=== PATIENT | female | born 1995 | race American Indian/Alaskan Native ===

== ENCOUNTER 2018-09-11 12:56 | Emergency (ER) | payer SELFPAY ==
[2018-09-11 13:05] VITALS: BP 137/87
--- NOTE | 2018-09-11 13:05 | Emergency Department Report ---
Blank Doc - Documentation Documentation: This is a 23-year-old female that presents with polyuria and nausea with vomit ing. This initial assessment/diagnostic orders/clinical plan/treatment(s) is/are subject to change based on patient's health status, clinical progression and re- assessment by fellow clinical providers in the ED. Further treatment and workup at subsequent clinical providers discretion. Patient/guardians urged not to elope from the ED as their condition may be serious if not clinically assessed and managed. Initial orders include: 1- Patient sent to [facility] for further evaluation and treatment 2- UA 3- labs 4- finger stick
[2018-09-11 13:56] LABS: Basophils % (Auto) 0.2 % (0.0-1.8); Eosinophils % (Auto) 0.8 % (0.0-4.3); Hematocrit 34.5 % (30.3-42.9); Hemoglobin 10.8 gm/dl (10.1-14.3); Lymphocytes # (Auto) 0.8 K/mm3 (1.2-5.4); Lymphocytes % (Auto) 14.4 % (13.4-35.0); Mean Corpuscular HGB Conc 31 % (30-34); Monocytes # (Auto) 0.3 K/mm3 (0.0-0.8); Monocytes % (Auto) 5.8 % (0.0-7.3); Platelet Count 361 K/mm3 (140-440); Red Blood Count 5.16 M/mm3 (3.65-5.03); Red Cell Distribution Width 18.4 % (13.2-15.2)
[2018-09-11 13:58] LABS: Mean Corpuscular Volume 67 fl (79-97)
[2018-09-11 14:11] LABS: Bacteria,Urine 3+ /HPF (Negative); Bilirubin,Urine NEG (Negative); Blood,Urine LG (Negative); Color,Urine Yellow (Yellow); Mucus,Urine 2+ /HPF; Protein,Urine <15 mg/dL mg/dL (Negative); Urobilinogen,Urine < 2.0 mg/dL (<2.0)
[2018-09-11 14:13] LABS: BUN/Creatinine Ratio 20; Blood Urea Nitrogen 12 mg/dL (7-17); Calcium 8.8 mg/dL (8.4-10.2); Hemolysis Index 1
[2018-09-11] MEDS ORDERED: ZOFRAN ODT PO ONE (14:26)
--- NOTE | 2018-09-11 14:29 | Emergency Department Report ---
HPI - General Chief Complaint: Nausea/Vomiting/Diarrhea Time Seen by Provider: 09/11/18 13:04 - HPI HPI: 23-year-old female presents to the emergency Department with a 24-hour history of nausea, vomiting, increased urination, diarrhea and some abdominal discomfort. She took some Aleve for her symptoms without much relief. She denies any past medical history. The patient recently took a trip to [place] and [place] but no international travel. No sick contacts at home. She does not have a primary care physician. ED Past Medical Hx - Past Medical History Previous Medical History?: No - Surgical History Past Surgical History?: No - Social History Smoking Status: Never Smoker Substance Use Type: None - Medications Home Medications: Home Medications Medication Instructions Recorded Confirmed Last Taken Type Nitrofurantoin [place]/M-Cryst 100 mg PO Q12HR #14 capsule 09/11/18 Unknown Rx [Macrobid CAP] Ondansetron [Zofran Odt] 4 mg PO Q8HR PRN #12 tab.rapdis 09/11/18 Unknown Rx ED Review of Systems ROS: Stated complaint: VOMIT/FREQUENT URINE Other details as noted in HPI Comment: All other systems reviewed and negative Constitutional: denies: chills, fever Eyes: denies: eye pain, vision change ENT: denies: ear pain, throat pain Respiratory: denies: cough, shortness of breath Cardiovascular: denies: chest pain, palpitations Gastrointestinal: abdominal pain, nausea, vomiting, diarrhea Genitourinary: frequency. denies: discharge Musculoskeletal: denies: joint swelling, arthralgia Skin: denies: rash, lesions Neurological: denies: headache, weakness Physical Exam - Physical Exam Vital Signs: Vital Signs 09/11/18 13:04 Temperature 98 F Pulse Rate 96 H Respiratory 18 Rate Blood Pressure 137/87 O2 Sat by Pulse 99 Oximetry Physical Exam: GENERAL: The patient is well-developed well-nourished. HENT: Normocephalic. Atraumatic. Patient has moist mucous membranes. EYES: Extraocular motions are intact. NECK: Supple. Trachea is midline. CHEST/LUNGS: Clear to auscultation. There is no respiratory distress noted. HEART/CARDIOVASCULAR: Regular. There is no tachycardia. There is no murmur. ABDOMEN: Abdomen is soft, nontender. Patient has normal bowel sounds. Morbidly obese habitus. SKIN: Skin is warm and dry. NEURO: The patient is awake, alert, and oriented. The patient is cooperative. The patient has no focal neurologic deficits. The patient has normal speech. MUSCULOSKELETAL: There is no tenderness or deformity. There is no evidence of acute injury. ED Course Vital Signs 09/11/18 13:04 Temperature 98 F Pulse Rate 96 H Respiratory 18 Rate Blood Pressure 137/87 O2 Sat by Pulse 99 Oximetry ED Medical Decision Making - Lab Data Result diagrams: 09/11/18 13:17 09/11/18 13:17 - Radiology Data Radiology results: image reviewed interpreted by me: Abdominal x-ray shows nonspecific nonobstructive bowel gas. - Medical Decision Making The patient presents with a 24-hour history of nausea and vomiting, diarrhea, increased urination and some mild generalized abdominal discomfort. Her physical examination is unremarkable. Abdominal x-ray shows nonspecific nonobstructive bowel gas. Labs appear grossly unremarkable including CBC, metabolic panel, lipase. Urinalysis shows some blood in the urine but the patient is just finishing her menstrual cycle. There may be a mild urinary tract infection. The patient is not . She was able to pass oral challenge. Patient will be given a referral for primary care. She will be given some Zofran ODT. She will be given a prescription for an antibiotic for the mild urinary tract infection. She is instructed to return to the emergency Department with any worsening of her symptoms or any acute distress. - Differential Diagnosis food poisoning, gastroenteritis, bowel obstruction, colitis Critical Care Time: No Critical care attestation.: If time is entered above; I have spent that time in minutes in the direct care of this critically ill patient, excluding procedure time. ED Disposition Clinical Impression: Nausea & vomiting Qualifiers: Vomiting type: unspecified Vomiting Intractability: non-intractable Qualified Code(s): R11.2 - Nausea with vomiting, unspecified Diarrhea Qualifiers: Diarrhea type: unspecified type Qualified Code(s): R19.7 - Diarrhea, unspecified Abdominal pain Qualifiers: Abdominal location: generalized Qualified Code(s): R10.84 - Generalized abdominal pain Disposition: -01 TO HOME OR SELFCARE Is pt being admited?: No Condition: Stable Instructions: Acute Nausea and Vomiting (ED), Acute Diarrhea (ED), Abdominal Pain (ED) Additional Instructions: Please follow up with a primary care physician in the next few days. Return to the emergency Department with any worsening of your symptoms or any acute distr ess. Prescriptions: Nitrofurantoin [place]/M-Cryst [Macrobid CAP] 100 mg PO Q12HR #14 capsule Ondansetron [Zofran Odt] 4 mg PO Q8HR PRN #12 tab.rapdis PRN Reason: Nausea Referrals: NAYELI ZAVALA MD [Staff Physician] - 2-3 Days [facility] [Outside] - 2-3 Days Time of Disposition: 16:04
--- NOTE | 2018-09-11 15:25 | XRay Report ---
FLAT AND UPRIGHT VIEWS OF THE ABDOMEN, 3 IMAGES INDICATION: abd pain. COMPARISON: No relevant prior imaging study available. FINDINGS: No free air is identified. No dilated loops of small or large bowel are seen. No abnormal calcificati ons are seen. IMPRESSION: 1. No acute findings. Signer Name: Keith Jasmine MD Signed: 09/11/2018 3:21 PM Workstation Name: [id number]
[2018-09-11] MEDS ORDERED: MACROBID PO ONE (15:28)
== END 2018-09-11 16:11 | disposition home or self-care (01) ==
LOC: ED 12:56
DX: R11.2 Nausea with vomiting, unspecified (principal); R19.7 Diarrhea, unspecified; R10.84 Generalized abdominal pain
CPT/HCPCS: 36415; 74019; 80048; 81001; 82962; 84703; 85025; 87076; 87086; 87186; 99284; Q0162

== ENCOUNTER 2019-04-26 19:23 | Emergency (ER) | payer MEDICAID ==
[2019-04-26 20:12] LABS: Basophils # (Auto) 0.1 K/mm3 (0.0-0.1); Basophils % (Auto) 0.7 % (0.0-1.8); Eosinophils # (Auto) 0.3 K/mm3 (0.0-0.4); Eosinophils % (Auto) 2.7 % (0.0-4.3); Hematocrit 32.5 % (30.3-42.9); Hemoglobin 10.2 gm/dl (10.1-14.3); Lymphocytes # (Auto) 2.9 K/mm3 (1.2-5.4); Lymphocytes % (Auto) 30.7 % (13.4-35.0); Mean Corpuscular HGB Conc 32 % (30-34); Monocytes # (Auto) 0.5 K/mm3 (0.0-0.8); Monocytes % (Auto) 5.2 % (0.0-7.3); Platelet Count 348 K/mm3 (140-440); Red Blood Count 4.87 M/mm3 (3.65-5.03)
[2019-04-26 20:15] LABS: Mean Corpuscular Volume 67 fl (79-97); Red Cell Distribution Width 21.3 % (13.2-15.2)
[2019-04-26 20:20] LABS: Bacteria,Urine 2+ /HPF (Negative); Bilirubin,Urine NEG (Negative); Blood,Urine LG (Negative); Color,Urine Yellow (Yellow); Mucus,Urine 1+ /HPF; Urobilinogen,Urine < 2.0 mg/dL (<2.0)
--- NOTE | 2019-04-26 20:35 | Emergency Department Report ---
ED HPI - General Chief complaint: Vaginal Bleeding Stated complaint: 12 WEEKS PREG HEAVY BLEEDING Time Seen by Provider: 04/26/19 20:18 Source: patient Mode of arrival: Ambulatory Limitations: No Limitations - History of Present Illness Initial comments: This is a 23-year-old -[place] female who presents to the emergency room with bright red vaginal bleeding during . Patient states she is 12 weeks . Patient reports light spotting for 2 weeks which progressed today to bright red blood visible on menstrual pad. Her PSYCHOLOGICAL AIDE is a copy women's [employer]. Patient states she was seen in February to by PSYCHOLOGICAL AIDE and diagnosed with bacterial vaginitis and a urinary tract infection. She completed 2 antibiotics. She denies past medical history. Last menstrual period was February 03, 2019, 1. MD Complaint: vaginal bleeding Onset/Timin -: week(s) Radiation: none Severity: mild Severity scale (0 -10): 0 Consistency: constant Improves with: none Worsens with: none Associated symptoms: denies other symptoms Vaginal bleeding: heavy :: Yes Number of weeks : 12 OB History - Current : no complications Last menstrual period: 02/03/19 Pre- care: followed by OB - Related Data : 0 Previous Rx's Medication Instructions Recorded Last Taken Type Nitrofurantoin [place]/M-Cryst 100 mg PO Q12HR #14 capsule 09/11/18 Unknown Rx [Macrobid CAP] Ondansetron [Zofran Odt] 4 mg PO Q8HR PRN #12 tab.rapdis 09/11/18 Unknown Rx cephALEXin [Keflex] 500 mg PO Q12HR #14 cap 04/26/19 Unknown Rx Allergies Allergy/AdvReac Type Severity Reaction Status Date / Time No Known Allergies Allergy Unverified 09/11/18 13:02 ED Review of Systems ROS: Stated complaint: 12 WEEKS PREG HEAVY BLEEDING Other details as noted in HPI Constitutional: denies: chills, fever Respiratory: denies: cough, shortness of breath, wheezing Cardiovascular: denies: chest pain, palpitations Gastrointestinal: denies: abdominal pain, nausea, diarrhea Genitourinary: other (vaginal bleeding during ). denies: urgency, dysuria, discharge Musculoskeletal: denies: back pain, joint swelling, arthralgia Skin: denies: rash, lesions Neurological: denies: headache, weakness, paresthesias Psychiatric: denies: anxiety, depression ED Past Medical Hx - Past Medical History Previous Medical History?: No - Surgical History Past Surgical History?: No - Social History Smoking Status: Never Smoker Substance Use Type: None - Medications Home Medications: Home Medications Medication Instructions Recorded Confirmed Last Taken Type Nitrofurantoin [place]/M-Cryst 100 mg PO Q12HR #14 capsule 09/11/18 Unknown Rx [Macrobid CAP] Ondansetron [Zofran Odt] 4 mg PO Q8HR PRN #12 tab.rapdis 09/11/18 Unknown Rx cephALEXin [Keflex] 500 mg PO Q12HR #14 cap 04/26/19 Unknown Rx ED Physical Exam - General Limitations: No Limitations General appearance: alert, in no apparent distress, obese (morbidly) - Respiratory Respiratory exam: Present: normal lung sounds bilaterally. Absent: respiratory distress - Cardiovascular Cardiovascular Exam: Present: regular rate, normal rhythm. Absent: systolic murmur, diastolic murmur, rubs, gallop - GI/Abdominal GI/Abdominal exam: Present: soft, normal bowel sounds. Absent: distended, tenderness, guarding, rebound, rigid - Extremities Exam Extremities exam: Present: normal inspection - Back Exam Back exam: Absent: CVA tenderness (R), CVA tenderness (L) - Neurological Exam Neurological exam: Present: alert, oriented X3 - Psychiatric Psychiatric exam: Present: normal affect, normal mood - Skin Skin exam: Present: warm, dry, intact, normal color. Absent: rash ED Course Vital Signs 04/26/19 04/26/19 19:29 20:41 Temperature 98.9 F Pulse Rate 98 H 87 Respiratory 22 18 Rate Blood Pressure 150/93 O2 Sat by Pulse 98 100 Oximetry ED Medical Decision Making - Lab Data Result diagrams: 04/26/19 19:58 Lab Results 04/26/19 04/26/19 04/26/19 Range/Units 19:36 19:58 19:58 WBC 9.4 (4.5-11.0) K/mm3 RBC 4.87 (3.65-5.03) M/mm3 Hgb 10.2 (10.1-14.3) gm/dl Hct 32.5 (30.3-42.9) % MCV 67 L (79-97) fl MCH 21 L (28-32) pg MCHC 32 (30-34) % RDW 21.3 H (13.2-15.2) % Plt Count 348 (140-440) K/mm3 Lymph % (Auto) 30.7 (13.4-35.0) % [place] % (Auto) 5.2 (0.0-7.3) % Eos % (Auto) 2.7 (0.0-4.3) % Baso % (Auto) 0.7 (0.0-1.8) % Lymph # 2.9 (1.2-5.4) K/mm3 [place] # 0.5 (0.0-0.8) K/mm3 Eos # 0.3 (0.0-0.4) K/mm3 Baso # 0.1 (0.0-0.1) K/mm3 Seg Neutrophils % 60.7 (40.0-70.0) % Seg Neutrophils # 5.7 (1.8-7.7) K/mm3 HCG, Quant 3616 H (0-4) mIU/mL Urine Color Yellow (Yellow) Urine Turbidity Slightly-cloudy (Clear) Urine pH 5.0 (5.0-7.0) Ur Specific [place] 1.021 (1.003-1.030) Urine Protein 30 mg/dl (Negative) mg/dL Urine Glucose (UA) Neg (Negative) mg/dL Urine Ketones Neg (Negative) mg/dL Urine Blood Lg (Negative) Urine Nitrite Neg (Negative) Urine Bilirubin Neg (Negative) Urine Urobilinogen < 2.0 (<2.0) mg/dL Ur Leukocyte Esterase Lg (Negative) Urine WBC (Auto) 56.0 H (0.0-6.0) /HPF Urine RBC (Auto) 42.0 (0.0-6.0) /HPF U Epithel Cells (Auto) 9.0 (0-13.0) /HPF Urine Bacteria (Auto) 2+ (Negative) /HPF Urine Mucus 1+ /HPF Blood Type 04/26/19 Range/Units 19:58 WBC (4.5-11.0) K/mm3 RBC (3.65-5.03) M/mm3 Hgb (10.1-14.3) gm/dl Hct (30.3-42.9) % MCV (79-97) fl MCH (28-32) pg MCHC (30-34) % RDW (13.2-15.2) % Plt Count (140-440) K/mm3 Lymph % (Auto) (13.4-35.0) % [place] % (Auto) (0.0-7.3) % Eos % (Auto) (0.0-4.3) % Baso % (Auto) (0.0-1.8) % Lymph # (1.2-5.4) K/mm3 [place] # (0.0-0.8) K/mm3 Eos # (0.0-0.4) K/mm3 Baso # (0.0-0.1) K/mm3 Seg Neutrophils % (40.0-70.0) % Seg Neutrophils # (1.8-7.7) K/mm3 HCG, Quant (0-4) mIU/mL Urine Color (Yellow) Urine Turbidity (Clear) Urine pH (5.0-7.0) Ur Specific [place] (1.003-1.030) Urine Protein (Negative) mg/dL Urine Glucose (UA) (Negative) mg/dL Urine Ketones (Negative) mg/dL Urine Blood (Negative) Urine Nitrite (Negative) Urine Bilirubin (Negative) Urine Urobilinogen (<2.0) mg/dL Ur Leukocyte Esterase (Negative) Urine WBC (Auto) (0.0-6.0) /HPF Urine RBC (Auto) (0.0-6.0) /HPF U Epithel Cells (Auto) (0-13.0) /HPF Urine Bacteria (Auto) (Negative) /HPF Urine Mucus /HPF Blood Type A POSITIVE - Radiology Data Radiology results: report reviewed ULTRASOUND OBSTETRIC INDICATION / CLINICAL INFORMATION: Preg, vag bleed, pain. Clinical Gestational Age (GA): 11.5 weeks.days TECHNIQUE: Transabdominal and Transvaginal. COMPARISON: None available. FINDINGS: GESTATIONAL SAC: Ill-defined gestational sac with complex cystic elements. Gestational sac measures 2.22 cm corresponding to 7.1 weeks/days. YOLK SAC: No discrete yolk sac. EMBRYO/FETUS: No discrete embryonic pole. ADNEXA: 2.1 cm left ovarian cyst. FREE FLUID: None. ADDITIONAL FINDINGS: None. IMPRESSION: 1. Abnormal appearing intrauterine gestational sac without normal-appearing yolk sac or embryonic pole. - Medical Decision Making This is a 23-year-old female that presents with 2 weeks of spotting that progressed to heavy bleeding today. Patient is 12 weeks . Vitals are stable and patient in no acute distress. Abdomen nontender on exam. Denies vaginal discharge or UTI symptoms. Work-up: Urinalysis, urine test, hCG quant, and OB ultrasound. Urinalysis unremarkable, hCG quant 3616, and OB ultrasound findings of Abnormal appearing intrauterine gestational sac without normal-appearing yolk sac or embryonic pole. Instructed to have repeat labs in 2 days to rule out threatened miscarriage. Start bed rest until follow-up with PSYCHOLOGICAL AIDE. Follow-up with her PSYCHOLOGICAL AIDE in 2 days. Patient discharged home stable with strict return instructions. Critical care attestation.: If time is entered above; I have spent that time in minutes in the direct care of this critically ill patient, excluding procedure time. ED Disposition Clinical Impression: Threatened miscarriage in early , Vaginal bleeding affecting early UTI (urinary tract infection) during Qualifiers: Trimester: first trimester Qualified Code(s): O23.41 - Unspecified infection of urinary tract in , first trimester Disposition: DC- TO HOME OR SELFCARE Is pt being admited?: No Condition: Stable Instructions: Threatened Miscarriage (ED), Urinary Tract Infection in Women (ED) Additional Instructions: Your hCG quant level on today's visit was 3616. You will need to follow-up with your PSYCHOLOGICAL AIDE or return to the emergency room in 48 hours to have repeat labs and/or ultrasound to completely rule out miscarriage. Stay on bed rest until you follow-up with your PSYCHOLOGICAL AIDE at a [facility]. Return to the emergency room if you have increased vaginal bleeding, abdominal pain, and back pain. Prescriptions: cephALEXin [Keflex] 500 mg PO Q12HR #14 cap Referrals: DILIP THAKKAR MD [Referring] - 3-5 Days [facility] [Provider Group] - 3-5 Days [facility] [Provider Group] - 3-5 Days Forms: Accompanied Note, Work/School Release Form(ED) Time of Disposition: 22:24
--- NOTE | 2019-04-26 21:52 | Ultrasound Report ---
ULTRASOUND OBSTETRIC INDICATION / CLINICAL INFORMATION: Preg, vag bleed, pain. Clinical Gestational Age (GA): 11.5 weeks.days TECHNIQUE: Transabdominal and Transvaginal. COMPARISON: None available. FINDINGS: GESTATIONAL SAC: Ill-defined gestational sac with complex cystic elements. Gestational sac measures 2 .22 cm corresponding to 7.1 weeks/days. YOLK SAC: No discrete yolk sac. EMBRYO/FETUS: No discrete embryonic pole. ADNEXA: 2.1 cm left ovarian cyst. FREE FLUID: None. ADDITIONAL FINDINGS: None. IMPRESSION: 1. Abnormal appearing intrauterine gestational sac without normal-appearing yolk sac or embryonic rosa e. Signer Name: Emily Bhandari MD Signed: 04/26/2019 9:47 PM Workstation Name: [id number]
[2019-04-26 22:42] VITALS: BP 144/93
== END 2019-04-26 22:43 | disposition home or self-care (01) ==
LOC: ED 19:23
DX: O20.0 Threatened abortion (principal); O23.41 Unspecified infection of urinary tract in pregnancy, first trimester; Z79.899 Other long term (current) drug therapy
CPT/HCPCS: 36415; 76801; 76817; 81001; 84702; 85025; 86900; 86901; 87076; 87086; 87186

== ENCOUNTER 2019-04-29 06:21 | Emergency (ER) | payer MEDICAID ==
[2019-04-29 06:43] VITALS: BP 130/83
[2019-04-29 07:04] LABS: Bilirubin,Urine NEG (Negative); Blood,Urine LG (Negative); Color,Urine Red (Yellow); Urobilinogen,Urine < 2.0 mg/dL (<2.0)
[2019-04-29 07:05] LABS: Protein,Urine 300 mg/dL mg/dL (Negative); RBC,Urine > 182.0 /HPF (0.0-6.0); WBC,Urine > 182.0 /HPF (0.0-6.0)
--- NOTE | 2019-04-29 08:15 | Emergency Department Report ---
ED HPI - General Chief complaint: Vaginal Bleeding Stated complaint: VAGINAL BLEEDING Time Seen by Provider: 04/29/19 07:12 Source: patient Mode of arrival: Ambulatory Limitations: No Limitations - History of Present Illness Initial comments: This is a 23-year-old female that is 12 weeks nontoxic, well nourished in appearance, no acute signs of distress presents to the ED with c/o of vaginal bleeding and pelvic pain. Patient was seen in the ED a few days ago with quantitative test of 3600. Patient denies any abdominal pain. Patient denies any vaginal discharge or foul odor. Patient denies any nausea, vomiting, chest pain, shortness of breathe, fever, chills, headache, stiff neck, numbness, tingling. Patient denies any urinary symptoms. Patient denies any allergies or PMH. Patient stated she has not been taking her Keflex as she stated she did not have time to get the prescription filled. Patient did state that she does have her prescription currently handy. MD Complaint: vaginal bleeding, other (pelvic pain) -: week(s) Location: pelvis Radiation: none Severity: mild Severity scale (0 -10): 3 Quality: cramping, aching Consistency: intermittent Improves with: none Worsens with: none Associated symptoms: vaginal bleeding. denies: nausea/vomiting, vaginal discharge, abdominal pain, dysuria, headache, vision changes, malaise, dys paruenia, rash, seizure, shortness of breath, syncope, weakness Vaginal bleeding: light :: Yes Number of weeks : 12 - Related Data Previous Rx's Medication Instructions Recorded Last Taken Type Nitrofurantoin [place]/M-Cryst 100 mg PO Q12HR #14 capsule 09/11/18 Unknown Rx [Macrobid CAP] Ondansetron [Zofran Odt] 4 mg PO Q8HR PRN #12 tab.rapdis 09/11/18 Unknown Rx cephALEXin [Keflex] 500 mg PO Q12HR #14 cap 04/26/19 Unknown Rx Allergies Allergy/AdvReac Type Severity Reaction Status Date / Time No Known Allergies Allergy Unverified 09/11/18 13:02 ED Review of Systems ROS: Stated complaint: VAGINAL BLEEDING Other details as noted in HPI Constitutional: denies: chills, fever Eyes: denies: eye pain, eye discharge, vision change ENT: denies: ear pain, throat pain Respiratory: denies: cough, shortness of breath, wheezing Cardiovascular: denies: chest pain, palpitations Endocrine: no symptoms reported Gastrointestinal: denies: abdominal pain, nausea, diarrhea Genitourinary: abnormal menses. denies: urgency, dysuria, discharge Musculoskeletal: denies: back pain, joint swelling, arthralgia Skin: denies: rash, lesions Neurological: denies: headache, weakness, paresthesias Psychiatric: denies: anxiety, depression Hematological/Lymphatic: denies: easy bleeding, easy bruising ED Past Medical Hx - Past Medical History Previous Medical History?: Yes Additional medical history: Morbid Obesity - Surgical History Past Surgical History?: No - Social History Smoking Status: Never Smoker Substance Use Type: None - Medications Home Medications: Home Medications Medication Instructions Recorded Confirmed Last Taken Type Nitrofurantoin [place]/M-Cryst 100 mg PO Q12HR #14 capsule 09/11/18 Unknown Rx [Macrobid CAP] Ondansetron [Zofran Odt] 4 mg PO Q8HR PRN #12 tab.rapdis 09/11/18 Unknown Rx cephALEXin [Keflex] 500 mg PO Q12HR #14 cap 04/26/19 Unknown Rx ED Physical Exam - General Limitations: No Limitations General appearance: alert, in no apparent distress - Head Head exam: Present: atraumatic, normocephalic - Neck Neck exam: Present: normal inspection, full ROM. Absent: tenderness, meningismus, lymphadenopathy - Respiratory Respiratory exam: Present: normal lung sounds bilaterally. Absent: respiratory distress, wheezes, rales, rhonchi, stridor, chest wall tenderness, accessory muscle use, decreased breath sounds, prolonged expiratory - Cardiovascular Cardiovascular Exam: Present: regular rate, normal rhythm, normal heart sounds. Absent: irregular rhythm, systolic murmur, diastolic murmur, rubs, gallop - GI/Abdominal GI/Abdominal exam: Present: soft, normal bowel sounds. Absent: distended, tenderness, guarding, rebound, rigid, diminished bowel sounds - Extremities Exam Extremities exam: Present: normal inspection, full ROM - Back Exam Back exam: Present: normal inspection, full ROM. Absent: tenderness, CVA tenderness (R), CVA tenderness (L), muscle spasm, paraspinal tenderness, vertebral tenderness, rash noted - Neurological Exam Neurological exam: Present: alert, oriented X3, normal gait - Psychiatric Psychiatric exam: Present: normal affect, normal mood - Skin Skin exam: Present: warm, dry, intact, normal color. Absent: rash ED Course Vital Signs 04/29/19 06:24 Temperature 98.3 F Pulse Rate 101 H Respiratory 18 Rate Blood Pressure 130/83 O2 Sat by Pulse 100 Oximetry - Reevaluation(s) Reevaluation #1: 04/29/19 08:17 Patient is speaking in full sentences with no signs of distress noted. ED Medical Decision Making - Lab Data Result diagrams: 04/29/19 07:38 - Medical Decision Making This is a 23-year-old female presents with spontaneous miscarriage and UTI. Pat ient is stable and was examined by me. Patient was instructed the importance of getting her prescription filled which is Keflex and stated she will get this r filled at discharge today. Patient stated she does have a prescription that was provided to her during her previous visit. Normal abdominal exam. US OB obtained and dictated by the radiologist. Ua obtained. Quantative serum test obtained and has decreased since last visit. Patient notified of the US report with no questions noted by the patient. Patient was instructed f/u with ASSISTANT FRONT DESK MANAGER in 3-5 days. RH factor positive. Labs within normal limits. Patient was given strict precautions and education on ectopic . At time of discharge, the patient does not seem toxic or ill in appearance. No acute signs of distress noted. Patient agrees to discharge treatment plan of care. No further questions noted by the patient. Critical care attestation.: If time is entered above; I have spent that time in minutes in the direct care of this critically ill patient, excluding procedure time. ED Disposition Clinical Impression: Spontaneous miscarriage UTI (urinary tract infection) Qualifiers: Urinary tract infection type: acute cystitis Hematuria presence: with hematuria Qualified Code(s): N30.01 - Acute cystitis with hematuria Disposition: TO HOME OR SELFCARE Is pt being admited?: No Does the pt Need Aspirin: No Condition: Stable Instructions: Spontaneous Miscarriage (ED), Urinary Tract Infection in Women (ED) Additional Instructions: Follow-up with a ASSISTANT FRONT DESK MANAGER doctor in 3-5 days or if symptoms worsen and continue return to emergency room as soon as possible. As instructed and educated to you it is very important that you take antibiotics that was prescribed to you during your previous visit, which you stated you currently have the prescription. Referrals: PRIMARY CARE, [Primary Care Provider] - 3-5 Days JOSE EMERY MD [Staff Physician] - 3-5 Days [facility] [Provider Group] - 3-5 Days Forms: Work/School Release Form(ED)
[2019-04-29 08:23] LABS: Basophils % (Auto) 0.4 % (0.0-1.8); Eosinophils # (Auto) 0.3 K/mm3 (0.0-0.4); Hematocrit 32.1 % (30.3-42.9); Hemoglobin 9.9 gm/dl (10.1-14.3); Lymphocytes # (Auto) 1.9 K/mm3 (1.2-5.4); Lymphocytes % (Auto) 22.4 % (13.4-35.0); Mean Corpuscular HGB Conc 31 % (30-34); Monocytes # (Auto) 0.6 K/mm3 (0.0-0.8); Monocytes % (Auto) 6.7 % (0.0-7.3); Platelet Count 336 K/mm3 (140-440); Red Blood Count 4.79 M/mm3 (3.65-5.03)
[2019-04-29 08:32] LABS: Mean Corpuscular Volume 67 fl (79-97); Red Cell Distribution Width 21.2 % (13.2-15.2)
--- NOTE | 2019-04-29 09:14 | Ultrasound Report ---
EXAMINATION: Obstetrical Ultrasound INDICATION: Vaginal bleeding in early . COMPARISON: Obstetrical ultrasound, 04/26/2019 FINDINGS: The uterus measures 9.1 x 5.5 x 6.4 cm. No intrauterine or gestational sac is visualized. E ndometrial thickness is difficult to measure due to the diffusely heterogeneous appearance of the irene kaylyn. The right adnexal region is not well visualized. The left ovary contains a 1.8 cm cyst. No free pelvi c fluid is identified. IMPRESSION: 1. No intrauterine or gestational sac is visualized. Please correlate with patient's clini rosas circumstances and laboratory values. 2. Left adnexal cyst. 3. Nonvisualization of the right ovary. Signer Name: Kavitha Dixon MD Signed: 04/29/2019 9:09 AM Workstation Name: [id number]
== END 2019-04-29 11:11 | disposition home or self-care (01) ==
LOC: ED 06:21
DX: O03.9 Complete or unspecified spontaneous abortion without complication (principal); N39.0 Urinary tract infection, site not specified
CPT/HCPCS: 36415; 76801; 76817; 76830; 81001; 84702; 85025; 87076; 87086; 87186